=== PATIENT | female | born 1975 | race Caucasian/White ===

== ENCOUNTER → 2023-05-27 15:40 | Outpatient (REF) | payer OTHER, SELFPAY | LOC: WDC 15:40 | PROVIDERS: ATTENDING PHYSICIAN Obstetrics & Gynecology Gynecology; FAMILY PHYSICIAN Family Medicine | DX: Z12.31 Encounter for screening mammogram for malignant neoplasm of breast (principal) | CPT/HCPCS: 77063; 77067 ==

== ENCOUNTER 2023-07-15 08:06 | Outpatient (RCR) | payer OTHER, SELFPAY | END 2023-07-15 23:59 | disposition home or self-care (01) | LOC: RPT 08:06 | PROVIDERS: ATTENDING PHYSICIAN Obstetrics & Gynecology Gynecology; FAMILY PHYSICIAN Family Medicine | DX: R32 Unspecified urinary incontinence (principal); R10.30 Lower abdominal pain, unspecified; Z73.6 Limitation of activities due to disability | CPT/HCPCS: 97162; 97530 ==

== ENCOUNTER 2023-08-21 16:50 | Outpatient (RCR) | payer OTHER, SELFPAY | END 2023-08-21 23:59 | disposition home or self-care (01) | LOC: RPT 16:50 | PROVIDERS: ATTENDING PHYSICIAN Obstetrics & Gynecology Gynecology; FAMILY PHYSICIAN Family Medicine | DX: M62.9 Disorder of muscle, unspecified (principal); Z73.6 Limitation of activities due to disability | CPT/HCPCS: 97110; 97112; 97530 ==

== ENCOUNTER 2023-09-16 18:24 | Outpatient (RCR) | payer OTHER, SELFPAY | END 2023-09-16 23:59 | disposition home or self-care (01) | LOC: RPT 18:24 | PROVIDERS: ATTENDING PHYSICIAN Obstetrics & Gynecology Gynecology; FAMILY PHYSICIAN Family Medicine | DX: M62.9 Disorder of muscle, unspecified (principal); M62.89 Other specified disorders of muscle; Z73.6 Limitation of activities due to disability | CPT/HCPCS: 97110; 97112 ==

== ENCOUNTER 2023-10-24 07:07 | Outpatient (RCR) | payer OTHER, SELFPAY | END 2023-10-24 23:59 | disposition home or self-care (01) | LOC: RPT 07:07 | PROVIDERS: ATTENDING PHYSICIAN Obstetrics & Gynecology Gynecology; FAMILY PHYSICIAN Family Medicine | DX: M62.9 Disorder of muscle, unspecified (principal); Z73.6 Limitation of activities due to disability | CPT/HCPCS: 97110; 97112; 97530 ==

== ENCOUNTER 2023-10-31 14:11 | Outpatient (RCR) | payer OTHER, SELFPAY | END 2023-10-31 23:59 | disposition home or self-care (01) | LOC: RPT 14:11 | PROVIDERS: ATTENDING PHYSICIAN Obstetrics & Gynecology Gynecology; FAMILY PHYSICIAN Family Medicine | DX: M62.9 Disorder of muscle, unspecified (principal); M62.89 Other specified disorders of muscle (principal); Z73.6 Limitation of activities due to disability | CPT/HCPCS: 97110; 97112 ==

== ENCOUNTER 2023-11-13 05:58 | Emergency (ER) | payer OTHER, SELFPAY ==
[2023-11-13 05:58] VITALS: BMI 37.1
[2023-11-13 06:00] VITALS: BP 150/98
--- NOTE | 2023-11-13 06:21 | ED.GENMED ---
History of Present Illness
General
Chief Complaint: Abdominal Pain
Time Seen by Provider: 11/13/23 06:19
History of Present Illness
History of Present Illness:
HPI: The patient presents with epigastric pain. She had a similar episode about 11 days ago which was self-limited. The pain recurred yesterday. She has no nausea or vomiting or diarrhea. This is unlike the pain that she had about 18 months ago
when she was diagnosed with an ovarian cyst. Other than an endometrial ablation, she has not had any abdominal surgeries. She denies any chest pain. Currently the pain has improved spontaneously.
EXAM:
GENERAL: Well appearing in minimal if any distress
HEENT: Moist oral mucosa
CARDIOVASCULAR: No murmurs, normal heart rate, regular rhythm, No chest wall tenderness
PULMONARY: No respiratory distress, breath sounds are clear and equal
ABDOMEN: Soft with no peritoneal signs, minimal epigastric tenderness, no tenderness in the right upper or left upper quadrant and no lower quadrant tenderness
NEUROLOGIC: Excellent strength all extremities, no coordination deficits
PSYCHIATRIC: Appropriate mental status, normal insight and judgement
EXTREMITIES: Nontender, no edema, moves all extremities equally
SKIN: No rash, no lesions
TIME OF INITIAL ENCOUNTER: 6:25 AM
NUMBER AND COMPLEXITY OF PROBLEMS ADDRESSED AT THE ENCOUNTER
� Chronic conditions affecting care: High blood pressure, ovarian cysts, anemia
� Acute Exacerbation and/or Progression of Chronic Illness: This is an acute problem
� Differential Diagnosis includes: Biliary colic, cholecystitis, pancreatitis, nonspecific abdominal pain, abdominal muscle strain
AMOUNT AND/OR COMPLEXITY OF DATA TO BE REVIEWED AND ANALYZED
� I performed an independent evaluation of and my interpretation is:
EKG: Sinus 71, LAD, No acute ST abnormality
CT:
X-rays:
Laboratory Studies: White count normal, hemoglobin normal, chemistries including LFTs and lipase are normal, hCG negative
Other: Ultrasound shows gallstones with no evidence of gallbladder infection
� Review of other/old records: I reviewed records, the patient had a CAT scan of her abdomen pelvis and March 2022 that showed a simple appearing right ovarian cyst
� Clinical information was obtained by an independent historian: I spoke to at bedside
� Prescriptions/Medications Considered but not given: Offered analgesia however the patient declined
� Further testing considered but not performed: Considered CT however given the location of the pain I do not feel the radiation risks outweigh the low likelihood of finding anything concerning on CT
RISK OF COMPLICATIONS AND/OR MORBIDITY OR MORTALITY OF PATIENT MANAGEMENT
� Social determinants of health affecting care: Lives at home
� Discussion with other providers:
� Escalation of care including admission/observation vs risk of discharge considered: The patient primarily complains of epigastric pain but is fairly comfortable in appearance. Workup consistent with biliary colic. Will have
her follow-up with surgery. She appears comfortable on reassessment at 7:35 AM.
Past History
Social History
Tobacco: Non-smoker
Phy Exam
Physical Exam
Physical Exam:
See HPI
Course
Orders/Labs/Results
Orders:
Orders
11/13/23 06:25
US Abdomen Complete/Upper Urgent
Comment:
Reason For Exam: epigastric pain
11/13/23 06:26
Electrocardiogram (*1) Urgent
Reason for Study: Abdominal Pain
EKG- Treatment ONCE
Test Result ONCE
11/13/23 06:32
Complete Blood Count/With Diff Urgent
Comprehensive Metabolic Panel Urgent
HCG, Serum Qualitative Screen Urgent
Lipase Urgent
11/13/23 06:37
0.9% Sodium Chloride 1000 ml [Nss] 1,000 ml IV BOLUS
Abnormal Lab Results
11/13/23
06:32
MCH 32.0 H pg
(27.0-31.0)
Abs Immat Gran (auto) 0.1 H 10^3/uL
(0-0.05)
Immature Gran % 0.7 H %
(0-0.5)
Carbon Dioxide 21 L mmol/L
(22-30)
Glucose 102 H mg/dl
(70-99)
11/13/23 06:32
11/13/23 06:32
Vital Signs
Initial and Last Documented VS:
Initial Vital Signs
Temp Pulse Resp BP Pulse Ox
98.9 F 80 17 150/98 97
11/13/23 06:00 11/13/23 06:00 11/13/23 06:00 11/13/23 06:00 11/13/23 06:00
Last Documented Vital Signs
Temp Pulse Resp BP Pulse Ox
98.9 F 80 17 150/98 95
11/13/23 06:00 11/13/23 06:00 11/13/23 06:00 11/13/23 06:00 11/13/23 07:25
*Critical Care Note
Total Time (30-74mins, 75-104mins- exclusive of procedures): Not Applicable
ED Attending Note
-
Portions of this chart may have been created with voice recognition software.� Occasional wrong word or��sound alike� substitutions may have occurred due to the inherent limitations of voice recognition software.
Discharge Plan
Departure
Patient Disposition: Home (Routine Discharge)
Date of Disposition: 11/13/23
Time of Disposition: 07:32
Patient with high blood pressure during this ER visit?: Yes
Discharge Problem:
Biliary colic
Instructions: Gallstones (DC), BLOOD PRESSURE
Prescriptions:
No Action
lisinopril 10 mg Tablet
5 mg PO DAILY
hydrochlorothiazide 25 mg Tablet
25 mg PO DAILY
metoprolol succinate 25 mg Tablet Extended Release 24 Hr
25 mg PO DAILY
norethindrone (contraceptive) [Jencycla] 0.35 mg Tablet
0.35 mg PO DAILY
Referrals:
Vipul Yates DO [Family Provider] -
Luis Lee MD [Active] - Next open appointment
Activity Restrictions/Additional Instructions:
You have gallstones however there is no sign of gallbladder infection. Your white blood cell count, liver numbers, and pancreas testing is all negative. I recommend that you follow-up with a general surgeon such as Dr. Lee.
Interventions
Interventions:
*Risk Screen - Suicide Last Done: 11/13/23 06:00
*General Assessment Last Done: 11/13/23 06:00
*Neglect/Abuse Screening Last Done: 11/13/23 06:00
ED- Fall Risk Assessment Last Done: 11/13/23 06:00
*ED COVID-19 Vaccine History Last Done: 11/13/23 06:00
QK-Erevgp-[place] Assessment Last Done: 11/13/23 06:38
Discharge Date and Time
Print Language: CZECH
[2023-11-13 06:41] LABS: % Basophils 0.4 % (0-2); % Eosinophils 2.1 % (0-6); % Immature Granulocytes 0.7 % (0-0.5); % Lymphocytes 22.5 % (20.5-51.1); % Monocytes 7.7 % (1.7-9.3); % Neutrophils 66.6 % (42.2-75.2); Absolute Eosinophils 0.2 10^3/uL (0-0.7); Absolute Immature Granulocytes 0.1 10^3/uL (0-0.05); Absolute Lymphocytes 1.6 10^3/uL (1.2-3.4); Absolute Monocytes 0.6 10^3/uL (0.1-0.6); Absolute Neutrophils 4.8 10^3/uL (1.4-6.5); Hematocrit 39.7 % (37.0-47.0); Mean Corp Hgb Conc. 35.3 g/dL (33.0-37.0); Mean Corpuscular Volume 90.8 fL (81.0-99.0); Mean Platelet Volume 9.6 fL (7.4-10.4); Nucleated Red Blood Cells % 0 %; Platelet Count 243 10^3/uL (130-400); Red Blood Cell Count 4.37 10^6/uL (4.20-5.40); Red Cell Dist. Width 12.5 % (11.5-14.5); White Blood Cell Count 7.2 10^3/uL (4.8-10.8)
[2023-11-13] MEDS: NSS 1000 IV (06:45)
[2023-11-13 06:57] LABS: ALT (SGPT) 35 U/L (0-35); AST (SGOT) 27 U/L (14-36); Albumin 4.1 g/dl (3.5-5.0); Alkaline Phosphatase 98 U/L (38-126); Blood Urea Nitrogen 13 mg/dl (7-17); Calcium 9.2 mg/dl (8.4-10.2); Carbon Dioxide 21 mmol/L (22-30); Chloride 105 mmol/L (98-107); Estimated Creatinine Clearance 90 ml/min; Glucose 102 mg/dl (70-99); Lipase 132 U/L (23-300); Potassium 3.8 mmol/L (3.5-5.1); Sodium 140 mmol/L (135-145); Total Bilirubin 0.4 mg/dl (0.2-1.3); Total Protein 6.7 g/dl (6.3-8.2); eGFR > 60.00
[2023-11-13 06:58] LABS: HCG, Serum Qualitative Screen Negative
[2023-11-13 08:00] VITALS: BP 116/83
== END 2023-11-13 08:15 | disposition home or self-care (01) ==
LOC: EMR 05:58
PROVIDERS: EMERGENCY PHYSICIAN Emergency Medicine; FAMILY PHYSICIAN Family Medicine
DX: K80.70 Calculus of gallbladder and bile duct without cholecystitis without obstruction (principal)
CPT/HCPCS: 96360; 99284; 76700; 80053; 83690; 84703; 85025; 93005

== ENCOUNTER 2024-01-19 06:32 | Day surgery (SDC) | payer OTHER, SELFPAY ==
[2024-01-19] VITALS (13 sets, daily range): BP systolic 105–145; BP diastolic 71–109; BMI 35.4
[2024-01-19] MEDS: TYLENOL 1000 MG PO (09:01)
--- NOTE | 2024-01-19 09:23 | W.SUR.PREOP ---
Pre-Operative Surgical Note
-
I have examined this patient prior to the performance of the scheduled procedure.
The patient's condition is unchanged from the time of the current History and
Physical and the patient is able to undergo the scheduled procedure.
--- NOTE | 2024-01-19 11:12 | W.IMMPOSTOP ---
Addendum entered and electronically signed by Ricky Powell MD 01/19/24 11:28:
#[id number]
Original Note:
Surgical Immed Post Op Note
-
Primary Surgeon: Andre
Assisting Surgeon: Steffanie Cooley PA-C
Pre-op Diagnosis: Symptomatic cholelithiasis
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
Procedure Performed: Laparoscopic cholecystectomy with intraoperative cholangiogram
Anesthesia Type: GETA +0.25% Marcaine
Specimen / Cultures: Gallbladder/none
Estimated Blood Loss: 6 mL
Complications: None immediate
Operative Findings: Physiologically distended gallbladder with stones. Omental and periduodenal adhesions to gallbladder serosa. Cystic artery, posterior cystic artery branch and small branch going to cystic duct controlled with clips.
Intraoperative cholangiogram normal. Cystic duct controlled with hemoclips. Gallbladder removed off the liver bed intact and extracted at epigastric 12 mm trocar site. No additional incidental findings.
The assistance of Steffanie Cooley PA-C was required due to the complexity of the procedure. During the procedure Steffanie Cooley PA-C assisted with gallbladder retraction, managing laparoscope, and closure of the incision sites.
== END 2024-01-19 13:22 | disposition home or self-care (01) ==
LOC: SDS 06:32
PROVIDERS: ATTENDING PHYSICIAN Surgery
DX: K80.10 Calculus of gallbladder with chronic cholecystitis without obstruction (principal)
CPT/HCPCS: 47563; 88304; 74300; 76000

== ENCOUNTER → 2024-05-27 16:13 | Outpatient (REF) | payer OTHER, SELFPAY | LOC: WDC 16:13 | PROVIDERS: ATTENDING PHYSICIAN Obstetrics & Gynecology Gynecology; FAMILY PHYSICIAN Family Medicine | DX: Z12.31 Encounter for screening mammogram for malignant neoplasm of breast (principal) | CPT/HCPCS: 77063; 77067 ==

== ENCOUNTER → 2025-02-09 16:18 | Outpatient (REF) | payer OTHER, SELFPAY | LOC: RAD 16:18 | PROVIDERS: ATTENDING PHYSICIAN Family Medicine; REFERRING PHYSICIAN Obstetrics & Gynecology | DX: R10.84 Generalized abdominal pain (principal) | CPT/HCPCS: 74177; Q9967 ==